=== PATIENT | male | born 1965 | race Caucasian/White ===

== ENCOUNTER 2017-04-19 17:23 | Emergency (ER) | payer BC ==
[2017-04-19] MEDS ORDERED: Sodium Chloride 0.9% 1000 ML 1,000 ML IV STA (18:05)
--- NOTE | 2017-04-19 18:10 | ERPHSYRPT ---
- History of Present Illness Time Seen by Provider: 04/19/17 18:02 Historian: patient Exam Limitations: no limitations Patient Subjective Stated Complaint: diarrehea for 6 days Triage Nursing Assessment: had upper resp s/s last week. started with diarrhea last monday and states now he has cramping to lt abd and then 20+ stools a day that are dark and liquid in color. vomited x1 yesterday. pain to lt abd is better after bowel movement but start again prior to stool. skin warm and dry Physician History: This is a 52-year-old white male with history of coronary artery disease, hyperlipidemia, diabetes, high blood pressure, myocardial infarction, chronic back pain. Patient arrives with complaint of loose stools for 5 days he states he has been having some vomiting states he is having abdominal cramping. States his stools have been dark he does not see any overt bleeding. Past medical history includes coronary artery disease, hyperlipidemia, diabetes , high blood pressure, myocardial infarction, back pain. Past surgical history includes cardiac catheter, cardiac stents, internal defibrillator/pacer, orthopedic surgery including shoulder and back, also appendectomy. Social history is positive for tobacco use denies alcohol or illicit drug use. Timing/Duration: day(s) (5 days) Activities at Onset: none Quality: cramping Abdominal Pain Onset Location: generalized abdomen Severity of Pain-Max: moderate Severity of Pain-Current: mild Modifying Factors: Worsens With: analgesics, antacids, breathing, coughing, defecating, eating, exercise, lying down, movement, palpation, rest, urinating, vomiting, position Associated Symptoms: diarrhea, nausea, No back, No chest pain, No diaphoresis, No fever/chills, No fatigue, No headache, No heartburn, No loss of appetite, No neck pain, No rash, No shortness of breath, No syncope, No vomiting, No weakness Previous symptoms: no prior history Allergies/Adverse Reactions: No Known Drug Allergies Allergy (Verified 04/19/17 17:50) Home Medications: Amiodarone HCl 200 mg [Cordarone 200 MG] 200 mg PO DAILY 07/03/14 [History ] Aspirin 81 gm Chew [Baby Aspirin 81 mg Chew] 81 mg PO DAILY 07/03/14 [ History] Clopidogrel Bisulfate 75 mg [PLAVIX 75 MG Tablet] 75 mg PO DAILY 07/03/14 [History] Gabapentin [Neurontin] 100 mg PO TID 07/03/14 [History] Lisinopril 5 mg [Zestril 5 MG] 5 mg PO BID 07/03/14 [History] Metoprolol Tartrate 25 mg [Lopressor 25MG Tab] 25 mg PO DAILY 07/03/14 [ History] Pravastatin Sodium [Pravachol] 20 mg PO DAILY 07/03/14 [History] Hx Tetanus, Diphtheria Vaccination/Date Given: Yes Hx Influenza Vaccination/Date Given: No Hx Pneumococcal Vaccination/Date Given: No Immunizations Up to Date: Yes - Review of Systems Constitutional: No Fever, No Chills Eyes: No Symptoms Ears, Nose, & Throat: No Symptoms Respiratory: No Cough, No Dyspnea Cardiac: No Chest Pain, No Edema, No Syncope Abdominal/Gastrointestinal: Abdominal Pain, Nausea, Vomiting, Diarrhea, No Constipation, No Hematemesis, No Hematochezia, No Melena, No Dysphagia, No Appetite Changes Genitourinary Symptoms: No Dysuria Musculoskeletal: No Back Pain, No Neck Pain Skin: No Rash Neurological: No Dizziness, No Focal Weakness, No Sensory Changes Psychological: No Symptoms Endocrine: No Symptoms All Other Systems: Reviewed and Negative - Past Medical History Pertinent Past Medical History: Yes Cardiac History: Coronary Artery Disease, High Cholesterol, Hypertension, Myocardial Infarction ([place]) Respiratory History: COPD Other Medical History: BACK PAIN - Past Surgical History Past Surgical History: Yes Cardiac: Cardiac Catheterization, Cardiac Stent, Internal Defibrillator, Pacemaker Musculoskeletal: Orthopedic Surgery - Social History Smoking Status: Current every day smoker Exposure to second hand smoke: Yes Drug Use: none Patient Lives Alone: No - Nursing Vital Signs Nursing Vital Signs: Initial Vital Signs Temperature 97.9 F 04/19/17 17:45 Pulse Rate 67 04/19/17 17:45 Respiratory Rate 18 04/19/17 17:45 Blood Pressure 145/78 04/19/17 17:45 O2 Sat by Pulse Oximetry 97 04/19/17 17:45 Pain Scale Pain Intensity 0 - Physical Exam General Appearance: no apparent distress Eye Exam: PERRL/EOMI, eyes nml inspection Ears, Nose, Throat Exam: normal ENT inspection, pharynx normal, moist mucous membranes Neck Exam: normal inspection, non-tender, supple, full range of motion Respiratory Exam: normal breath sounds, lungs clear, No respiratory distress Cardiovascular Exam: regular rate/rhythm, normal heart sounds Gastrointestinal/Abdomen Exam: soft, normal bowel sounds, tenderness (mild diffuse tenderness), No distention, No mass, No guarding, No ecchymosis, No pulsatile mass, No rebound, No hernia, No hepatomegaly, No organomegaly, No splenomegaly Rectal Exam: normal rectal tone, other (dark stool) Back Exam: normal inspection, normal range of motion, No CVA tenderness, No vertebral tenderness Extremity Exam: normal inspection, normal range of motion, pelvis stable Neurologic Exam: alert, oriented x 3, cooperative, normal mood/affect, nml cerebellar function, sensation nml, No motor deficits Skin Exam: normal color, warm, dry SpO2 Interpretation: normal (97%) SpO2: 97 Oxygen Delivery: Room Air - Course Nursing assessment & vital signs reviewed: Yes - Radiology Exams Abdomen X-ray Interpretation: Interpreted by me, Other (three-view abdomen series: Chest x-ray no acute disease process noted, abdominal x-ray nonobstructive bowel gas pattern) Ordered Tests: Medication Summary Discontinued Medications Generic Name Dose Route Start Last Admin Trade Name Freq PRN Reason Stop Dose Admin Sodium Chloride 1,000 mls @ 999 mls/hr 04/19/17 18:05 04/19/17 18:22 Sodium Chloride 0.9% 1000 Ml IV 04/19/17 19:05 999 mls/hr .Q1H1M STA Administration Sodium Chloride Confirm 04/19/17 18:18 Sodium Chloride 0.9% 1000 Ml Administered 04/19/17 18:19 Dose 1,000 mls @ ud .ROUTE .K-MED ONE Lab/Rad Data: Laboratory Result Diagrams 04/19/17 18:12 04/19/17 18:12 Laboratory Results 04/19/17 04/19/17 04/19/17 Range/Units 19:29 18:36 18:12 WBC (4.0-10.5) K/mm3 RBC (4.1-5.6) M/mm3 Hgb (12.5-18.0) gm/dl Hct (42-50) % MCV (78-100) fl MCH (26-32) pg MCHC (32-36) g/dl RDW (11.5-14.0) % Plt Count (150-450) K/mm3 MPV (6-9.5) fl Gran % (36.0-66.0) % Lymphocytes % (24.0-44.0) % Monocytes % (0.0-12.0) % Eosinophils % (0.00-5.0) % Basophils % (0.0-0.4) % Basophils # (0-0.4) Sodium 145 (136-145) mEq/L Potassium 4.0 (3.5-5.1) mEq/L Chloride 108 H (98-107) mEq/L Carbon Dioxide 26.3 (21-32) mEq/L Anion Gap 15.1 H (5-15) MEQ/L BUN 11 (9-20) mg/dL Creatinine 1.13 (0.55-1.30) mg/dl Estimated GFR > 60 ML/MIN Glucose 88 (70-110) MG/DL Calcium 8.8 (8.5-10.1) mg/dL Total Bilirubin 0.50 (0.2-1.0) mg/dL AST 129 H (15-37) U/L ALT 172 H (12-78) U/L Alkaline Phosphatase 52 (46-116) U/L Serum Total Protein 7.2 (6.4-8.2) gm/dL Albumin 4.2 (3.4-5.0) g/dL Amylase 38 (25-115) U/L Lipase 118 (73-393) U/L Ur Collection Type VOID Urine Color DARK YELLOW (YELLOW) Urine Appearance CLEAR (CLEAR) Urine pH 5.0 (5-6) Ur Specific [place] 1.025 (1.005-1.025) Urine Protein TRACE (Negative) Urine Ketones NEGATIVE (NEGATIVE) Urine Blood NEGATIVE (0-5) Haile/ul Urine Nitrite NEGATIVE (NEGATIVE) Urine Bilirubin MODERATE (NEGATIVE) Urine Urobilinogen 1 (0-1) mg/dL Ur Leukocyte Esterase NEGATIVE (NEGATIVE) Urine Microscopic RBC 0-2 (0-2) /HPF Urine Microscopic WBC 0-2 (0-5) /HPF Ur Epithelial Cells FEW (FEW) /HPF Calcium Oxalate Crystal 0-2 (NEGATIVE) /HPF Amorphous Crystals MODERATE (NEGATIVE) /HPF Urine Bacteria MANY (NEGATIVE) /HPF Urine Mucus MODERATE (NEGATIVE) /HPF Urine Culture Reflexed YES (NO) Urine Glucose NEGATIVE (NEGATIVE) mg/dL Stool Occult Blood NEGATIVE (Negative) Specimen Received 04/19/17 1930 04/19/17 Range/Units 18:12 WBC 9.1 (4.0-10.5) K/mm3 RBC 4.84 (4.1-5.6) M/mm3 Hgb 15.3 (12.5-18.0) gm/dl Hct 46.0 (42-50) % MCV 95.0 (78-100) fl MCH 31.6 (26-32) pg MCHC 33.3 (32-36) g/dl RDW 14.2 H (11.5-14.0) % Plt Count 199 (150-450) K/mm3 MPV 11.6 H (6-9.5) fl Gran % 55.7 (36.0-66.0) % Lymphocytes % 31.1 (24.0-44.0) % Monocytes % 10.2 (0.0-12.0) % Eosinophils % 2.8 (0.00-5.0) % Basophils % 0.2 (0.0-0.4) % Basophils # 0.02 (0-0.4) Sodium (136-145) mEq/L Potassium (3.5-5.1) mEq/L Chloride (98-107) mEq/L Carbon Dioxide (21-32) mEq/L Anion Gap (5-15) MEQ/L BUN (9-20) mg/dL Creatinine (0.55-1.30) mg/dl Estimated GFR ML/MIN Glucose (70-110) MG/DL Calcium (8.5-10.1) mg/dL Total Bilirubin (0.2-1.0) mg/dL AST (15-37) U/L ALT (12-78) U/L Alkaline Phosphatase (46-116) U/L Serum Total Protein (6.4-8.2) gm/dL Albumin (3.4-5.0) g/dL Amylase (25-115) U/L Lipase (73-393) U/L Ur Collection Type Urine Color (YELLOW) Urine Appearance (CLEAR) Urine pH (5-6) Ur Specific [place] (1.005-1.025) Urine Protein (Negative) Urine Ketones (NEGATIVE) Urine Blood (0-5) Haile/ul Urine Nitrite (NEGATIVE) Urine Bilirubin (NEGATIVE) Urine Urobilinogen (0-1) mg/dL Ur Leukocyte Esterase (NEGATIVE) Urine Microscopic RBC (0-2) /HPF Urine Microscopic WBC (0-5) /HPF Ur Epithelial Cells (FEW) /HPF Calcium Oxalate Crystal (NEGATIVE) /HPF Amorphous Crystals (NEGATIVE) /HPF Urine Bacteria (NEGATIVE) /HPF Urine Mucus (NEGATIVE) /HPF Urine Culture Reflexed (NO) Urine Glucose (NEGATIVE) mg/dL Stool Occult Blood (Negative) Specimen Received - Progress Progress: improved Progress Note: 04/19/17 18:57 Patient is feeling better now he states he's been having 5 days of abdominal pain diarrhea. Stools were Dark, occult blood is negative. labs show a normal white count hemoglobin and hematocrit are 15.3 and 46. Chemistry shows mild elevation of the patient's SGOT and SGPT otherwise unremarkable. Will check acute abdominal series plan to discharge clear fluids and Lomotil Patient will need a follow-up with his family DrManuel secondary to mildly increased liver enzymes. 04/19/17 19:27 - Departure Time of Disposition: 19:00 Departure Disposition: Home Clinical Impression: mildly elevated liver enzymes Abdominal pain Qualifiers: Abdominal location: generalized Qualified Code(s): R10.84 - Generalized abdominal pain Diarrhea Qualifiers: Diarrhea type: unspecified type Qualified Code(s): R19.7 - Diarrhea, unspecified Condition: Fair Critical Care Time: No Referrals: MAY MACKAY [Primary Care Provider] - Additional Instructions: Return home. Plenty of fluids clear fluids only 24-48 hours. Follow-up with your family doctor. Return for acute distress or for severe symptoms. Lomotil No. 12 one orally 4 times a day as needed for diarrhea. Prescriptions: Diphenoxylate HCl/Atropine [Lomotil] 1 tab PO QID PRN #12 tablet PRN Reason: diarrhea
[2017-04-19 18:15] LABS: BASOPHIL % 0.2 % (0.0-0.4); Eosinophil % 2.8 % (0.00-5.0); Granulocytes % 55.7 % (36.0-66.0); Lymphocytes % 31.1 % (24.0-44.0); Mean Corpuscular Hemoglobin 31.6 pg (26-32); Mean Platelet Volume 11.6 fl (6-9.5); Monocytes % 10.2 % (0.0-12.0); Platelet Count 199 K/mm3 (150-450); Red Blood Count 4.84 M/mm3 (4.1-5.6); Red Cell Distribution Width 14.2 % (11.5-14.0); White Blood Count 9.1 K/mm3 (4.0-10.5)
[2017-04-19] MEDS ORDERED: Sodium Chloride 0.9% 1000 ML 1,000 ML ONE (18:18)
[2017-04-19 18:27] LABS: ALBUMIN 4.2 g/dL (3.4-5.0); ALKALINE PHOSPHATASE 52 U/L (46-116); ANION GAP 15.1 MEQ/L (5-15); BLOOD UREA NITROGEN 11 mg/dL (9-20); CHLORIDE 108 mEq/L (98-107); Carbon Dioxide 26.3 mEq/L (21-32); Glucose 88 MG/DL (70-110); LIPASE 118 U/L (73-393); SGOT/AST 129 U/L (15-37); SGPT/ALT 172 U/L (12-78); SODIUM 145 mEq/L (136-145); Total Protein 7.2 gm/dL (6.4-8.2)
[2017-04-19 20:01] LABS: Bilirubin MODERATE (NEGATIVE); Blood NEGATIVE Ery/ul (0-5); COMPLETE URINE MICROSCOPIC? YES; Collection Type VOID; Glucose NEGATIVE (NEGATIVE); Leukocyte Esterase NEGATIVE (NEGATIVE)
[2017-04-19 20:02] LABS: ADD URINE CULTURE? YES (NO); Bacteria MANY /HPF (NEGATIVE); CALCIUM OXALATE CRYSTALS 0-2 /HPF (NEGATIVE); Epithelial Cells FEW /HPF (FEW); Mucus MODERATE /HPF (NEGATIVE); WBC 0-2 /HPF (0-5)
[2017-04-19 20:19] VITALS: BP 123/66; PULSE 90; O2SAT 97
--- NOTE | 2017-04-19 22:34 | XRAY ---
Indication: Vomiting and diarrhea. Comparison: Chest exam April 01, 2013. 2 views of the abdomen demonstrates nonspecific nonobstructed bowel gas pattern. Irregular coarse opacities overlying the stomach presumed ingested food/medication. Solid organs unremarkable. Osseous structures intact with moderate degenerative changes throughout the lumbar spine. Single PA chest remains clear. Heart is not enlarged. New left-sided dual lead pacemaker. Bony thorax intact. Impression: 1. Nonacute nonobstructed abdomen. 2. Nonacute 1 view chest with new left-sided pacemaker.
== END 2017-04-19 20:19 | disposition home or self-care (01) ==
LOC: ED 17:23
DX: R10.84 Generalized abdominal pain (principal); R19.7 Diarrhea, unspecified; R74.8 Abnormal levels of other serum enzymes; I25.10 Atherosclerotic heart disease of native coronary artery without angina pectoris; E78.00 Pure hypercholesterolemia, unspecified; E78.5 Hyperlipidemia, unspecified; E11.9 Type 2 diabetes mellitus without complications; I10 Essential (primary) hypertension; I25.2 Old myocardial infarction; Z79.899 Other long term (current) drug therapy
CPT/HCPCS: 36000; 36415; 74022; 80053; 81000; 82150; 82272; 83690; 85025; 87086; 99283

== ENCOUNTER 2017-10-22 18:42 | Inpatient (IN) | payer BC, OTHER ==
[2017-10-22] MEDS ORDERED: DUONEB 0.5-3 MG/3 ml Neb IH ONE ×4 (18:49→22:46)
--- NOTE | 2017-10-22 18:49 | ERPHSYRPT ---
- History of Present Illness Time Seen by Provider: 10/22/17 18:56 Source: patient, family Exam Limitations: no limitations Physician History: 52 year old male with onset shortness of breath aqnd fever today; hx CAD with pacer/defib in place and stents , no CP but diaphoresis , wet rales/rhonchi in lower lung gupta bilaterally; Hx COPD as well. Timing/Duration: today Activities at Onset: none Severity of Dyspnea-Max: moderate Severity of Dyspnea-Current: moderate Possible Cause: frequent episodes, chronic episodes, unknown cause Modifying Factors: Improves With: activity, exertion Associated Symptoms: constant, wheezing, sweating Allergies/Adverse Reactions: No Known Drug Allergies Allergy (Verified 10/22/17 18:58) Home Medications: Amiodarone HCl 200 mg [Cordarone 200 MG] 200 mg PO DAILY 07/03/14 [History ] Aspirin 81 gm Chew [Baby Aspirin 81 mg Chew] 81 mg PO DAILY 07/03/14 [ History] Gabapentin [Neurontin] 100 mg PO TID 07/03/14 [History] Metoprolol Tartrate 25 mg [Lopressor 25MG Tab] 25 mg PO DAILY 07/03/14 [ History] Pravastatin Sodium [Pravachol] 20 mg PO DAILY 07/03/14 [History] Clopidogrel Bisulfate 75 mg [PLAVIX 75 MG Tablet] 75 mg DAILY 10/22/17 [ History] Metformin HCl 500 mg [Glucophage 500 MG] 500 mg DAILY 10/22/17 [History] Hx Tetanus, Diphtheria Vaccination/Date Given: Yes Hx Influenza Vaccination/Date Given: No Hx Pneumococcal Vaccination/Date Given: No - Review of Systems Constitutional: Fever, No Chills Eyes: No Symptoms Ears, Nose, & Throat: No Symptoms Respiratory: Cough, Dyspnea, Wheezing Cardiac: No Chest Pain, No Edema, No Syncope Abdominal/Gastrointestinal: No Abdominal Pain, No Nausea, No Vomiting, No Diarrhea Genitourinary Symptoms: No Dysuria Musculoskeletal: No Back Pain, No Neck Pain Skin: No Rash Neurological: No Dizziness, No Focal Weakness, No Sensory Changes Psychological: No Symptoms Endocrine: No Symptoms All Other Systems: Reviewed and Negative - Past Medical History Pertinent Past Medical History: Yes Cardiac History: Coronary Artery Disease, High Cholesterol, Hypertension, Myocardial Infarction ([place]) Respiratory History: COPD Other Medical History: BACK PAIN - Past Surgical History Past Surgical History: Yes Cardiac: Cardiac Catheterization, Cardiac Stent, Internal Defibrillator, Pacemaker Musculoskeletal: Orthopedic Surgery - Social History Smoking Status: Current every day smoker Exposure to second hand smoke: Yes Drug Use: none Patient Lives Alone: No - Nursing Vital Signs Nursing Vital Signs: Initial Vital Signs Temperature 99.4 F 10/22/17 18:51 Pulse Rate 94 H 10/22/17 18:51 Respiratory Rate 24 10/22/17 18:51 Blood Pressure 118/65 10/22/17 18:51 O2 Sat by Pulse Oximetry 92 L 10/22/17 18:51 Pain Scale Pain Intensity 0 - Physical Exam General Appearance: no apparent distress, alert Eye Exam: PERRL/EOMI Neck Exam: normal inspection, supple Respiratory Exam: airway intact, rhonchi, wheezing Cardiovascular/Chest Exam: normal heart sounds, regular rate/rhythm Abdominal/Gastrointestinal Exam: soft, No tenderness, No distention, No mass Extremity Exam: non-tender, normal range of motion, normal inspection, no calf tenderness, pedal edema, No calf tenderness, No darvin's sign Peripheral Pulses Exam: carotid (R): 2+, carotid (L): 2+, femoral (R): 2+, femoral (L): 2+, dorsalis-pedis (R): 2+, dorsalis-pedis (L): 2+ Neurologic Exam: alert, oriented x 3, cooperative, prepared foods service team member II-XII nml as tested, sensation nml, No motor deficits Skin Exam: normal color, warm, No dry SpO2 Interpretation: borderline oxygenation Oxygen Delivery: Room Air - Course Nursing assessment & vital signs reviewed: Yes EKG Interpreted by Me: Sinus Rhythm, NORMAL AXIS, Non-specific ST Changes, Other (left conduction delay) - Radiology Exams Chest X-ray Interpretation: Reviewed by me, Pneumonia (LLL) Ordered Tests: Active Orders 24 hr Category Date Time Status Analytical Tech STAT Care 10/22/17 18:50 Active EKG-ER Only STAT Care 10/22/17 18:49 Active EKG-ER Only STAT Care 10/22/17 20:39 Active IV Insertion STAT Care 10/22/17 18:49 Active Oxygen-ED Only NASAL CANNULA 2 lpm Care 10/22/17 18:54 Active Pulse Oximetry (ED) STAT Care 10/22/17 18:49 Active CHEST 2 VIEWS (PA AND LAT) Stat Exams 10/22/17 18:50 Taken BLOOD CULTURE Stat Lab 10/22/17 18:55 Received CBC W DIFF Stat Lab 10/22/17 18:55 Completed CMP Stat Lab 10/22/17 18:55 Completed CULTURE, THROAT Stat Lab 10/22/17 19:00 Received Lactic Acid Stat Lab 10/22/17 18:49 Completed Lactic Acid Stat Lab 10/22/17 21:01 Ordered Manual Differential NC Stat Lab 10/22/17 18:55 Completed NT PRO BNP Stat Lab 10/22/17 18:55 Completed STREP SCREEN-BETA A Stat Lab 10/22/17 19:00 Completed TROPONIN Q3H Lab 10/22/17 18:55 Completed TROPONIN Q3H Lab 10/22/17 22:00 Ordered TROPONIN Q3H Lab 10/23/17 01:00 Ordered TROPONIN Q3H Lab 10/23/17 04:00 Ordered TROPONIN Q3H Lab 10/23/17 07:00 Ordered UA W/RFX UR CULTURE Stat Lab 10/22/17 18:51 Uncollected Respiratory Nebulizer STAT RT 10/22/17 18:51 Completed Medication Summary Generic Name Dose Route Start Last Admin Trade Name Freq PRN Reason Stop Dose Admin Magnesium Sulfate/Dextrose 100 mls @ 100 mls/hr 10/22/17 19:00 10/22/17 20:05 Magnesium 1 Gm / 100 Ml D5w IV 10/22/17 20:59 100 mls/hr Q1H TED Administration Sodium Chloride 1,000 mls @ 100 mls/hr 10/22/17 19:00 10/22/17 19:05 Sodium Chloride 0.9% 1000 Ml IV 11/21/17 18:59 100 mls/hr .Q10H TED Administration Discontinued Medications Generic Name Dose Route Start Last Admin Trade Name Freq PRN Reason Stop Dose Admin Albuterol/Ipratropium 3 ml 10/22/17 18:49 10/22/17 19:05 Duoneb 0.5-3 Mg/3 Ml Neb IH 10/22/17 18:50 3 ml STAT ONE Administration Albuterol/Ipratropium Confirm 10/22/17 19:04 Duoneb 0.5-3 Mg/3 Ml Neb Administered 10/22/17 19:05 Dose 3 ml IH .STK-MED ONE Ceftriaxone Sodium/Dextrose 1 g in 50 mls @ 100 mls/hr 10/22/17 18:54 19:05 Rocephin 1 Gm-D5w 50 Ml Bag IV 10/22/17 19:23 100 mls/hr STAT STA Administration Ceftriaxone Sodium/Dextrose Confirm 10/22/17 19:00 Rocephin 1 Gm-D5w 50 Ml Bag Administered 10/22/17 19:01 Dose 1 g in 50 mls @ ud IV .STK-MED ONE Piperacillin Sod/Tazobactam 100 mls @ 200 mls/hr 10/22/17 19:59 Sod 4.5 gm/ Dextrose IV 10/22/17 20:28 STAT ONE Dextrose Confirm 10/22/17 20:38 D5w 100ml Mini Bag 100 Ml Administered 10/22/17 20:39 Dose 100 mls @ ud IV .STK-MED ONE Piperacillin Sod/Tazobactam Sod Confirm 10/22/17 20:38 Zosyn Inj Administered 10/22/17 20:39 Dose 4.5 gm IV .STK-MED ONE Lab/Rad Data: Laboratory Result Diagrams 10/22/17 18:55 10/22/17 18:55 Laboratory Results 10/22/17 10/22/17 10/22/17 Range/Units 19:00 19:00 18:55 WBC (4.0-10.5) K/mm3 RBC (4.1-5.6) M/mm3 Hgb (12.5-18.0) gm/dl Hct (42-50) % MCV (78-100) fl MCH (26-32) pg MCHC (32-36) g/dl RDW (11.5-14.0) % Plt Count (150-450) K/mm3 MPV (6-9.5) fl Absolute Granulocytes (1.4-6.9) Sodium (137-145) mmol/L Potassium (3.5-5.1) mmol/L Chloride (98-107) mmol/L Carbon Dioxide (22-30) mmol/L Anion Gap (5-15) MEQ/L BUN (9-20) mg/dL Creatinine (0.66-1.25) mg/dL Estimated GFR ML/MIN Glucose (74-106) mg/dL Lactic Acid (0.4-2.0) Calcium (8.4-10.2) mg/dL Total Bilirubin (0.2-1.3) mg/dL AST (17-59) U/L ALT (0-50) U/L Alkaline Phosphatase (38-126) U/L Troponin I < 0.012 (0.000-0.034) ng/mL NT-Pro-B Natriuret Pep (0-900) pg/mL Serum Total Protein (6.3-8.2) g/dL Albumin (3.5-5.0) g/dL Influenza Type A Ag NEGATIVE (NEGATIVE) Influenza Type B Ag NEGATIVE (NEGATIVE) RSV (PCR) NEGATIVE (Negative) Streptococcus Screen NEGATIVE (Negative) 10/22/17 10/22/17 10/22/17 Range/Units 18:55 18:55 18:49 WBC 9.7 (4.0-10.5) K/mm3 RBC 4.46 (4.1-5.6) M/mm3 Hgb 14.4 (12.5-18.0) gm/dl Hct 42.4 (42-50) % MCV 95.1 (78-100) fl MCH 32.3 H (26-32) pg MCHC 34.0 (32-36) g/dl RDW 14.2 H (11.5-14.0) % Plt Count 111 L (150-450) K/mm3 MPV 12.2 H (6-9.5) fl Absolute Granulocytes 8.25 H (1.4-6.9) Sodium 137 (137-145) mmol/L Potassium 4.2 (3.5-5.1) mmol/L Chloride 99 (98-107) mmol/L Carbon Dioxide 27 (22-30) mmol/L Anion Gap 15.8 H (5-15) MEQ/L BUN 27 H (9-20) mg/dL Creatinine 1.63 H (0.66-1.25) mg/dL Estimated GFR 47.8 ML/MIN Glucose 161 H (74-106) mg/dL Lactic Acid 2.6 H (0.4-2.0) Calcium 9.0 (8.4-10.2) mg/dL Total Bilirubin 1.60 H (0.2-1.3) mg/dL AST 38 (17-59) U/L ALT 48 (0-50) U/L Alkaline Phosphatase 41 (38-126) U/L Troponin I (0.000-0.034) ng/mL NT-Pro-B Natriuret Pep 399 (0-900) pg/mL Serum Total Protein 7.0 (6.3-8.2) g/dL Albumin 3.9 (3.5-5.0) g/dL Influenza Type A Ag (NEGATIVE) Influenza Type B Ag (NEGATIVE) RSV (PCR) (Negative) Streptococcus Screen (Negative) - Progress Progress: improved, re-examined Air Movement: good Progress Note: 10/22/17 21:14 discussed with pt , family and Dr. Hernandez covering fo rDr. Mackay and will place pt in on OBS due to new CP and pneumonia and begin AB tx 10/22/17 21:15 CP began after arrival and repeat EKG still no change Blood Culture(s) Obtained: Yes Antibiotics given: Yes Discussed with : David Will see patient in: hospital (observation) Counseled pt/family regarding: lab results, diagnosis, need for follow-up, rad results - Departure Time of Disposition: 21:15 Departure Disposition: Observation Clinical Impression: LLL pneumonia, Chest pain Condition: Good Critical Care Time: No Referrals: MAY MACKAY [Primary Care Provider] -
[2017-10-22] MEDS ORDERED: ROCEPHIN 1 Gm-D5w 50 ml Bag** 1 G/50 ML IVPB IV STA (18:54)
[2017-10-22] MEDS ORDERED: ROCEPHIN 1 Gm-D5w 50 ml Bag** 1 G/50 ML IVPB IV ONE (19:00)
[2017-10-22] MEDS ORDERED: Sodium Chloride 0.9% 1000 ML 1,000 ML ONE (19:00)
[2017-10-22] MEDS ORDERED: Sodium Chloride 0.9% 1000 ML 1,000 ML IV SCH (19:00)
[2017-10-22] MEDS ORDERED: Magnesium 1 Gm / 100 Ml D5W*** 100 ML IV ONE ×2 (19:00→20:04)
[2017-10-22 19:05] LABS: Granulocyte Absolute (ANC) 8.25 (1.4-6.9); Hematocrit 42.4 % (42-50); Hemoglobin 14.4 gm/dl (12.5-18.0); Mean Cell Volume 95.1 fl (78-100); Mean Corpuscular Hemoglobin 32.3 pg (26-32); Mean Platelet Volume 12.2 fl (6-9.5); Platelet Count 111 K/mm3 (150-450); Red Blood Count 4.46 M/mm3 (4.1-5.6); Red Cell Distribution Width 14.2 % (11.5-14.0); White Blood Count 9.7 K/mm3 (4.0-10.5)
[2017-10-22 19:12] LABS: Lactic Acid 2.6 (0.4-2.0)
[2017-10-22] MEDS: Magnesium 1 Gm / 100 Ml D5W*** 100 ML IV SCH ×2 (19:20→20:05)
[2017-10-22 19:25] LABS: ALBUMIN 3.9 g/dL (3.5-5.0); ANION GAP 15.8 MEQ/L (5-15); BILIRUBIN,TOTAL 1.6 mg/dL (0.2-1.3); Creatinine 1 1.63 mg/dL (0.66-1.25); Potassium 4.2 mmol/L (3.5-5.1)
[2017-10-22] MEDS ORDERED: Zosyn INJ 4.5 GM in D5w 100ML Mini Bag 100 ML 100 ML IV ONE (19:59)
[2017-10-22 20:03] LABS: INFLUENZA A NEGATIVE (NEGATIVE); INFLUENZA B NEGATIVE (NEGATIVE); RESPIRATORY SYNCTIAL VIRUS NEGATIVE (Negative)
[2017-10-22] MEDS ORDERED: Zosyn INJ IV ONE (20:38)
[2017-10-22] MEDS ORDERED: D5w 100ML Mini Bag 100 ML 100 ML IV ONE (20:38)
--- NOTE | 2017-10-22 21:16 | XRAY ---
Indication: Short of breath. Comparison: April 19, 2017. PA/lateral chest demonstrate new left lower lobe pneumonic infiltrate without large effusion. Right lung clear. Heart is not enlarged again with left-sided AICD. Bony thorax intact. Impression: New left lower lobe pneumonic infiltrate.
[2017-10-22] MEDS ORDERED: BENADRYL 50 MG/ML IV ONE (22:07)
[2017-10-22] MEDS ORDERED: MORPHINE SULFATE 4 MG INJ IV ONE (22:07)
[2017-10-22] MEDS ORDERED: MORPHINE SULFATE 4 MG INJ ONE (22:28)
[2017-10-22] MEDS ORDERED: BENADRYL 50 MG/ML ONE (22:28)
[2017-10-22 22:39] LABS: Lactic Acid 2.3 (0.4-2.0)
[2017-10-22] MEDS ORDERED: Hydromorphone 1 mg/ml Ampule IV ONE (22:48)
[2017-10-22] MEDS ORDERED: DILAUDID 2 MG INJECTION ONE (22:50)
[2017-10-22 23:01] LABS: Appearance CLEAR (CLEAR)
[2017-10-22 23:02] LABS: Bilirubin NEGATIVE (NEGATIVE); Glucose NEGATIVE (NEGATIVE); Ketones NEGATIVE (NEGATIVE); Leukocyte Esterase NEGATIVE (NEGATIVE); Nitrite NEGATIVE (NEGATIVE); Protein,Urine Dip NEGATIVE (Negative); Specific Gravity 1.015 (1.005-1.025); Urobilinogen 1 mg/dL (0-1)
[2017-10-22 23:03] LABS: Blood TRACE NON-HEM Ery/ul (0-5); Epithelial Cells RARE /HPF (FEW); RBC 0-2 /HPF (0-2)
[2017-10-22 23:50] LABS: BAND 9 % (0.0-2.0); Basophil 1 % (0.0-1.0); Lymphocytes 18 % (24-44); Monocyte 8 % (0.0-12.0); Neutrophils 64 % (36.-66.); Platelet Estimate NORMAL (NORMAL); Total Cells Counted 100
[2017-10-23] MEDS ORDERED: DUONEB 0.5-3 MG/3 ml Neb IH PRN (00:17)
[2017-10-23] MEDS ORDERED: Zofran 4 MG/2 ML VIAL IV PRN (00:17)
[2017-10-23] MEDS: TYLENOL 325 MG PO PRN (00:45)
[2017-10-23 00:56] LABS: A-aADO2 246; ABG HEMOGLOBIN 14.2; ABG POTASSIUM 3.7 (3.5-5.1); ARTERIAL BLD GAS O2 SATURATION 96.3 % (95-100); ARTERIAL BLOOD GAS BASE EXCESS -0.5 (-2.0-2.0); ARTERIAL BLOOD GAS FIO2 50 %; ARTERIAL BLOOD GAS PCO2 34 mmHg (35-45); ARTERIAL BLOOD GAS PO2 68 mmHg (75-100); ARTERIAL BLOOD GAS pH 7.44 (7.35-7.45); CARBOXYHEMOGLOBIN 2.3 % THgb (0.0-6.9); HCO3- 23.1 (22-28); HGB O2 SAT 93.4 g/dF (94-100); Methhemoglobin 0.7 % (1.4-1.5); paO2 pAO1 0.22
[2017-10-23 00:57] LABS: ABG SITE RIGHT BRACHIAL
[2017-10-23] MEDS: MORPHINE SULFATE 4 MG INJ IV PRN ×3 (01:53→23:41)
[2017-10-23] MEDS: Pepcid 20 MG VIAL IV SCH ×3 (01:54→23:41)
[2017-10-23] MEDS ORDERED: DUONEB 0.5-3 MG/3 ml Neb IH ONE (02:45)
[2017-10-23] MEDS: Zosyn 3.375GM/100 Ml D5W 3.375 GM/100 ML IVPB IV SCH ×5 (04:35→23:42)
[2017-10-23] MEDS: Sodium Chloride 0.9% 1000 ML 1,000 ML IV SCH ×2 (04:35→17:43)
[2017-10-23 05:24] LABS: Lactic Acid 2.4 (0.4-2.0)
[2017-10-23 06:00] LABS: Granulocyte Absolute (ANC) 9.28 (1.4-6.9); Hematocrit 41.1 % (42-50); Hemoglobin 13.6 gm/dl (12.5-18.0); Mean Cell Volume 97.2 fl (78-100); Mean Corpuscular Hemoglobin 32.2 pg (26-32); Mean Corpuscular Hgb Concent. 33.1 g/dl (32-36); Mean Platelet Volume 12.7 fl (6-9.5); Platelet Count 108 K/mm3 (150-450); Red Blood Count 4.23 M/mm3 (4.1-5.6); Red Cell Distribution Width 14.3 % (11.5-14.0)
[2017-10-23 06:10] LABS: ALBUMIN 3.7 g/dL (3.5-5.0); ANION GAP 16.3 MEQ/L (5-15); BILIRUBIN,TOTAL 1.4 mg/dL (0.2-1.3); Calcium 8.4 mg/dL (8.4-10.2); Creatinine 1 1.78 mg/dL (0.66-1.25); Total Protein 6.3 g/dL (6.3-8.2)
[2017-10-23] MEDS: DUONEB 0.5-3 MG/3 ml Neb IH SCH ×5 (06:37→23:27)
[2017-10-23] MEDS: Levofloxacin 500MG/100ML D5W 500 MG/100 ML BAG IV SCH ×2 (07:58→10:09)
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
[2017-10-23] MEDS ORDERED: MEFOXIN 2 GM PREMIX** 2 GM/50 ML ML IV SCH (09:00)
[2017-10-23] MEDS ORDERED: Nitrostat 0.4 MG Tablet SL PRN (09:39)
[2017-10-23] MEDS ORDERED: Neurontin 100 MG PO SCH (10:00)
[2017-10-23] MEDS ORDERED: BABY ASPIRIN 81 MG CHEW PO SCH (10:00)
[2017-10-23] MEDS ORDERED: NON-FORMULARY ITEM (Pravastatin Sodium [Pravastatin Sodium] 40 MG) PO SCH (10:00)
[2017-10-23] MEDS ORDERED: ENOXAPARIN SODIUM SQ SCH (10:00)
[2017-10-23] MEDS ORDERED: Levofloxacin 500MG/100ML D5W 500 MG/100 ML BAG IV SCH (10:00)
[2017-10-23] MEDS: Lopressor 25MG Tab PO SCH ×2 (10:08→23:42)
[2017-10-23] MEDS: ZOCOR 20MG PO SCH (10:08)
[2017-10-23] MEDS: DELTASONE 20 MG PO SCH (10:08)
[2017-10-23] MEDS: Cordarone 200 MG PO SCH ×2 (10:09→23:42)
[2017-10-23] MEDS: ECOTRIN 81 MG PO SCH (10:09)
[2017-10-23] MEDS: NEURONTIN 300 MG PO SCH ×3 (10:09→23:42)
[2017-10-23] MEDS: PLAVIX 75 MG Tablet PO SCH (10:09)
[2017-10-23] MEDS: Imdur 30 MG PO SCH (10:09)
[2017-10-23] MEDS: PATIENT OWN MEDICATION IH SCH (11:25)
[2017-10-23 12:30] LABS: BAND 17 % (0.0-2.0); Lymphocytes 13 % (24-44); Monocyte 3 % (0.0-12.0); Neutrophils 67 % (36.-66.); Total Cells Counted 100
[2017-10-23 12:31] LABS: ANISOCYTOSIS 1+; Platelet Estimate NORMAL (NORMAL); Poikilocytosis 1+; Polychromasia 1+
[2017-10-23] MEDS: NovoLIN R SQ PRN ×2 (16:40→23:43)
[2017-10-24] MEDS: DUONEB 0.5-3 MG/3 ml Neb IH SCH ×6 (03:38→23:13)
[2017-10-24] MEDS: Zosyn 3.375GM/100 Ml D5W 3.375 GM/100 ML IVPB IV SCH ×4 (05:22→23:51)
[2017-10-24] MEDS: MORPHINE SULFATE 4 MG INJ IV PRN (05:22)
[2017-10-24] MEDS: Sodium Chloride 0.9% 1000 ML 1,000 ML IV SCH ×2 (05:22→19:50)
[2017-10-24 06:12] LABS: Granulocyte Absolute (ANC) 7.64 (1.4-6.9); Hematocrit 37.2 % (42-50); Hemoglobin 12.4 gm/dl (12.5-18.0); Mean Cell Volume 95.9 fl (78-100); Mean Corpuscular Hgb Concent. 33.3 g/dl (32-36); Mean Platelet Volume 12.5 fl (6-9.5); Platelet Count 119 K/mm3 (150-450); Red Blood Count 3.88 M/mm3 (4.1-5.6); Red Cell Distribution Width 14.1 % (11.5-14.0); White Blood Count 9.6 K/mm3 (4.0-10.5)
[2017-10-24 06:15] LABS: Mean Corpuscular Hemoglobin 31.9 pg (26-32)
[2017-10-24 06:25] LABS: ANION GAP 10.8 MEQ/L (5-15); BLOOD UREA NITROGEN 22 mg/dL (9-20); CHLORIDE 106 mmol/L (98-107); Calcium 8.4 mg/dL (8.4-10.2); Carbon Dioxide 27 mmol/L (22-30); Creatinine 1 0.98 mg/dL (0.66-1.25); Glucose 131 mg/dL (74-106); Potassium 4.1 mmol/L (3.5-5.1); SODIUM 140 mmol/L (137-145)
[2017-10-24] MEDS: PATIENT OWN MEDICATION IH SCH (07:36)
[2017-10-24 07:38] LABS: BAND 3 % (0.0-2.0); Lymphocytes 23 % (24-44); Monocyte 1 % (0.0-12.0); Neutrophils 73 % (36.-66.); Total Cells Counted 100
[2017-10-24 07:39] LABS: Platelet Estimate NORMAL (NORMAL); Toxic Granulation 1+
--- NOTE | 2017-10-24 08:59 | PCM.NOTE ---
Date and Time: 10/24/17 0854 Subjective Assessment: Patient reports that he countinues to have a cough but nothing comes up. He reports that he gets short of breath when ambulating across the [place]. He was placed on oxygen 2 L NC and does not wear oxygen at home. He denies fever or chills and no nausea or vomiting in the past 24 hours. He denies constipation. - Review of Systems Constitutional: No Fever, No Chills Eyes: No Symptoms Ears, Nose, & Throat: No Symptoms Respiratory: Cough, Short Of Breath Cardiac: No No Symptoms Abdominal/Gastrointestinal: No No Symptoms, No Constipation Genitourinary Symptoms: No Symptoms Musculoskeletal: No Symptoms Skin: No Symptoms Objective Exam General Appearance: no apparent distress, alert Neurologic Exam: alert, cooperative, normal mood/affect Skin Exam: normal color, warm, dry, No rash Respiratory Exam: airway intact, other (few scattered crackles at bases and few inspiratory wheeze and expiratory wheeze at bases bilat, no no retractions, no tachypnea.), No respiratory distress, No accessory muscle use, No stridor Cardiovascular Exam: regular rate/rhythm, normal heart sounds, No murmur, No friction rub, No gallop Gastrointestinal/Abdomen Exam: soft, normal bowel sounds, No tenderness, No distention, No mass Extremity Exam: other (no c/c/e) OBJECTIVE DATA Vital Signs: Vital Signs - 24 hr Temp Pulse Resp BP Pulse Ox 10/24/17 08:00 97.7 F 67 20 113/69 94 L 10/24/17 07:00 65 18 90 L 10/24/17 04:00 97.9 F 73 28 H 140/79 95 10/24/17 03:38 73 28 H 95 10/24/17 00:00 98.1 F 77 22 124/71 94 L 10/23/17 23:27 77 24 94 L 10/23/17 20:00 97.8 F 68 22 134/75 91 L 10/23/17 19:14 68 18 91 L 10/23/17 16:00 20 10/23/17 15:48 97.8 F 76 20 117/68 95 10/23/17 15:00 74 20 91 L 10/23/17 12:00 97.5 F 80 16 116/59 97 10/23/17 11:25 92 L 10/23/17 10:26 77 22 96 Oxygen-Last 24 hours O2 Percentage 2 Liters = 28% O2 Percentage 2 Liters = 28% Pain Assessment - Last Documented Pain Intensity 6 Pain Scale Used 0-10 Pain Scale Intake and Output: Intake & Output 10/22/17 10/23/17 10/24/17 10/25/17 06:59 06:59 06:59 06:59 Intake Total 613 2804 Output Total 350 300 Balance 263 2504 Weight 124 kg Lab Results: Accuchecks Date 10/24/17 Date 10/22/17 Date 10/23/17 Date 10/23/17 Time 22:00 Time 16:30 Time 11:30 Accucheck Value: 111 Accucheck Value: 177 Accucheck Value: 197 Accucheck Value: 141 Lab Results-Last 24 Hours 10/23/17 10/23/17 10/24/17 Range/Units 05:00 05:45 05:48 WBC 9.6 (4.0-10.5) K/mm3 RBC 3.88 L (4.1-5.6) M/mm3 Hgb 12.4 L (12.5-18.0) gm/dl Hct 37.2 L (42-50) % MCV 95.9 (78-100) fl MCH 31.9 (26-32) pg MCHC 33.3 (32-36) g/dl RDW 14.1 H (11.5-14.0) % Plt Count 119 L (150-450) K/mm3 MPV 12.5 H (6-9.5) fl Absolute Granulocytes 7.64 H (1.4-6.9) Segmented Neutrophils 67 H 73 H (36.-66.) % Band Neutrophils 17 H 3 H (0.0-2.0) % Lymphocytes (Manual) 13 L 23 L (24-44) % Monocytes (Manual) 3 1 (0.0-12.0) % Toxic Granulation 1+ Platelet Estimate NORMAL NORMAL (NORMAL) RBC Morphology ABNORMAL NORMAL Polychromasia 1+ Poikilocytosis 1+ Anisocytosis 1+ Sodium (137-145) mmol/L Potassium (3.5-5.1) mmol/L Chloride (98-107) mmol/L Carbon Dioxide (22-30) mmol/L Anion Gap (5-15) MEQ/L BUN (9-20) mg/dL Creatinine (0.66-1.25) mg/dL Estimated GFR ML/MIN Glucose (74-106) mg/dL Hemoglobin A1c 5.61 (4.5-6.0) % Calcium (8.4-10.2) mg/dL 10/24/17 Range/Units 05:48 WBC (4.0-10.5) K/mm3 RBC (4.1-5.6) M/mm3 Hgb (12.5-18.0) gm/dl Hct (42-50) % MCV (78-100) fl MCH (26-32) pg MCHC (32-36) g/dl RDW (11.5-14.0) % Plt Count (150-450) K/mm3 MPV (6-9.5) fl Absolute Granulocytes (1.4-6.9) Segmented Neutrophils (36.-66.) % Band Neutrophils (0.0-2.0) % Lymphocytes (Manual) (24-44) % Monocytes (Manual) (0.0-12.0) % Toxic Granulation Platelet Estimate (NORMAL) RBC Morphology Polychromasia Poikilocytosis Anisocytosis Sodium 140 (137-145) mmol/L Potassium 4.1 (3.5-5.1) mmol/L Chloride 106 (98-107) mmol/L Carbon Dioxide 27 (22-30) mmol/L Anion Gap 10.8 (5-15) MEQ/L BUN 22 H (9-20) mg/dL Creatinine 0.98 (0.66-1.25) mg/dL Estimated GFR > 60.0 ML/MIN Glucose 131 H (74-106) mg/dL Hemoglobin A1c (4.5-6.0) % Calcium 8.4 (8.4-10.2) mg/dL Assessment/Plan (1) LLL pneumonia Current Visit: Yes Status: Acute Qualifiers: Pneumonia type: due to unspecified organism Qualified Code(s): J18.1 - Lobar pneumonia, unspecified organism Assessment & Plan: Continue levofloxacin and zosyn. Blood culture no growth to date. Continue breathing treatments and oxygen as needed. He will need an albuterol inhaler to have at home. He follows with Dr. Montiel as an outpatient. Code(s): J18.1 - LOBAR PNEUMONIA, UNSPECIFIED ORGANISM (2) COPD exacerbation Current Visit: Yes Status: Acute Assessment & Plan: Continue prednisone, antibiotics and oxygen. Code(s): J44.1 - CHRONIC OBSTRUCTIVE PULMONARY DISEASE W (ACUTE) EXACERBATION (3) Acute kidney injury Current Visit: Yes Status: Resolved Assessment & Plan: Now resolved. D/C IV fluids. Code(s): N17.9 - ACUTE KIDNEY FAILURE, UNSPECIFIED (4) History of coronary artery disease Current Visit: Yes Status: Chronic Assessment & Plan: continue home medications. Restart Entresto. Code(s): Z86.79 - PERSONAL HISTORY OF OTHER DISEASES OF THE CIRCULATORY SYSTEM (5) Type 2 diabetes mellitus Current Visit: Yes Status: Acute Qualifiers: Diabetes mellitus termite helper insulin use: without penitentiary use Diabetes mellitus complication status: without complication Qualified Code(s): E11.9 - Type 2 diabetes mellitus without complications Assessment & Plan: Continue to hold metformin and continue low dose sliding scale insulin.
[2017-10-24] MEDS: PLAVIX 75 MG Tablet PO SCH (09:57)
[2017-10-24] MEDS: DELTASONE 20 MG PO SCH (09:57)
[2017-10-24] MEDS: Pepcid 20 MG VIAL IV SCH ×2 (09:57→22:07)
[2017-10-24] MEDS: Lopressor 25MG Tab PO SCH ×2 (09:57→22:06)
[2017-10-24] MEDS: Levofloxacin 500MG/100ML D5W 500 MG/100 ML BAG IV SCH (09:57)
[2017-10-24] MEDS: Cordarone 200 MG PO SCH ×2 (09:57→22:07)
[2017-10-24] MEDS: NEURONTIN 300 MG PO SCH ×3 (09:57→22:06)
[2017-10-24] MEDS: ZOCOR 20MG PO SCH (09:57)
[2017-10-24] MEDS: ECOTRIN 81 MG PO SCH (09:57)
[2017-10-24] MEDS: Imdur 30 MG PO SCH (09:57)
[2017-10-24] MEDS: ENTRESTO 49 MG-51 MG TABLET PO SCH ×2 (09:57→22:07)
[2017-10-24] MEDS: NovoLIN R SQ PRN (22:07)
[2017-10-25] MEDS: DUONEB 0.5-3 MG/3 ml Neb IH SCH ×6 (03:28→22:17)
[2017-10-25] MEDS: Zosyn 3.375GM/100 Ml D5W 3.375 GM/100 ML IVPB IV SCH ×3 (05:34→17:39)
[2017-10-25 05:44] LABS: BASOPHIL % 0.2 % (0.0-0.4); Basophil (Absolute #) 0.02 (0-0.4); Eosinophil % 0.2 % (0.00-5.0); Eosinophil (Absolute #) 0.02 (0-0.5); Granulocyte Absolute (ANC) 8.25 (1.4-6.9); Granulocytes % 77.2 % (36.0-66.0); Hematocrit 38.8 % (42-50); Hemoglobin 13.2 gm/dl (12.5-18.0); Lymphocyte (Absolute #) 1.53 (1.0-4.6); Lymphocytes % 14.3 % (24.0-44.0); Mean Cell Volume 95.8 fl (78-100); Mean Platelet Volume 12.1 fl (6-9.5); Monocyte (Absolute #) 0.87 (0.0-1.3); Monocytes % 8.1 % (0.0-12.0); Platelet Count 143 K/mm3 (150-450); Red Blood Count 4.05 M/mm3 (4.1-5.6); Red Cell Distribution Width 14.2 % (11.5-14.0); White Blood Count 10.7 K/mm3 (4.0-10.5)
[2017-10-25 05:45] LABS: Mean Corpuscular Hemoglobin 32.5 pg (26-32)
[2017-10-25 06:01] LABS: ANION GAP 13.3 MEQ/L (5-15); BLOOD UREA NITROGEN 17 mg/dL (9-20); CHLORIDE 108 mmol/L (98-107); Calcium 8.6 mg/dL (8.4-10.2); Carbon Dioxide 23 mmol/L (22-30); Creatinine 1 0.81 mg/dL (0.66-1.25); Glucose 134 mg/dL (74-106); Potassium 3.9 mmol/L (3.5-5.1); SODIUM 140 mmol/L (137-145)
[2017-10-25] MEDS: PATIENT OWN MEDICATION IH SCH (07:15)
--- NOTE | 2017-10-25 08:55 | PCM.NOTE ---
Date and Time: 10/25/17 0850 Subjective Assessment: Patient reports continued dry cough and shortness of breath. He reports some pain in his left side when he is coughing. He was off oxygen late last night and this AM. His appetite has been good. He reports the breathing treatments seem to help. - Review of Systems Constitutional: No Symptoms Eyes: No Symptoms Ears, Nose, & Throat: No Symptoms Respiratory: Cough, Short Of Breath, Wheezing Cardiac: No Symptoms Abdominal/Gastrointestinal: No Symptoms Genitourinary Symptoms: No Symptoms Musculoskeletal: No Symptoms Skin: No Symptoms Objective Exam General Appearance: no apparent distress, alert, obese Neurologic Exam: alert, cooperative, normal mood/affect Skin Exam: normal color, warm, dry, No rash Respiratory Exam: airway intact, other (scattered expiratory wheezes throughout) , No respiratory distress, No accessory muscle use, No crackles/rales, No stridor Cardiovascular Exam: regular rate/rhythm, normal heart sounds, No murmur, No friction rub, No gallop Gastrointestinal/Abdomen Exam: soft, normal bowel sounds, No tenderness, No distention, No mass Extremity Exam: other (no c/c/e) OBJECTIVE DATA Vital Signs: Vital Signs - 24 hr Temp Pulse Resp BP Pulse Ox 10/25/17 07:44 98.1 F 62 22 125/74 95 10/25/17 07:00 75 20 95 10/25/17 04:00 98 F 67 18 142/76 95 10/25/17 03:28 67 18 95 10/25/17 00:00 62 18 126/76 99 10/24/17 23:13 60 16 96 10/24/17 20:00 98.2 F 76 20 132/74 93 L 10/24/17 19:04 72 24 92 L 10/24/17 16:00 98.2 F 77 24 118/64 94 L 10/24/17 14:48 66 22 95 10/24/17 12:00 97.7 F 66 22 113/62 95 10/24/17 11:00 67 20 94 L Pain Assessment - Last Documented Pain Intensity 3 Pain Scale Used 0-10 Pain Scale Intake and Output: Intake & Output 10/23/17 10/24/17 10/25/17 10/26/17 06:59 06:59 06:59 06:59 Intake Total 600 Balance 600 Weight 122.5 kg Lab Results: Accuchecks Date 10/24/17 Date 10/24/17 Date 10/24/17 Accucheck Value: 82 Accucheck Value: 181 Accucheck Value: 147 Accucheck Value: 129 Lab Results-Last 24 Hours 10/25/17 10/25/17 Range/Units 05:35 05:35 WBC 10.7 H (4.0-10.5) K/mm3 RBC 4.05 L (4.1-5.6) M/mm3 Hgb 13.2 (12.5-18.0) gm/dl Hct 38.8 L (42-50) % MCV 95.8 (78-100) fl MCH 32.5 H (26-32) pg MCHC 34.0 (32-36) g/dl RDW 14.2 H (11.5-14.0) % Plt Count 143 L (150-450) K/mm3 MPV 12.1 H (6-9.5) fl Gran % 77.2 H (36.0-66.0) % Eos # (Auto) 0.02 (0-0.5) Absolute Lymphs (auto) 1.53 (1.0-4.6) Absolute Monos (auto) 0.87 (0.0-1.3) Lymphocytes % 14.3 L (24.0-44.0) % Monocytes % 8.1 (0.0-12.0) % Eosinophils % 0.2 (0.00-5.0) % Basophils % 0.2 (0.0-0.4) % Absolute Granulocytes 8.25 H (1.4-6.9) Basophils # 0.02 (0-0.4) Sodium 140 (137-145) mmol/L Potassium 3.9 (3.5-5.1) mmol/L Chloride 108 H (98-107) mmol/L Carbon Dioxide 23 (22-30) mmol/L Anion Gap 13.3 (5-15) MEQ/L BUN 17 (9-20) mg/dL Creatinine 0.81 (0.66-1.25) mg/dL Estimated GFR > 60.0 ML/MIN Glucose 134 H (74-106) mg/dL Calcium 8.6 (8.4-10.2) mg/dL Assessment/Plan (1) LLL pneumonia Current Visit: Yes Status: Acute Onset Date: ~10/22/17 Qualifiers: Pneumonia type: due to unspecified organism Qualified Code(s): J18.1 - Lobar pneumonia, unspecified organism Assessment & Plan: Continue with zosyn and levofloxacin Day 4 of both. Recheck chest X-ray today. Continue with oxygen if needed. Continue breathing treatments. Code(s): J18.1 - LOBAR PNEUMONIA, UNSPECIFIED ORGANISM (2) COPD exacerbation Current Visit: Yes Status: Acute Onset Date: ~10/22/17 Assessment & Plan: Continue prednisone, antibiotics, breathing treatments and oxygen. Code(s): J44.1 - CHRONIC OBSTRUCTIVE PULMONARY DISEASE W (ACUTE) EXACERBATION (3) History of coronary artery disease Current Visit: Yes Status: Chronic Assessment & Plan: Stable on home medications. Entresto was restarted yesterday. Code(s): Z86.79 - PERSONAL HISTORY OF OTHER DISEASES OF THE CIRCULATORY SYSTEM (4) Type 2 diabetes mellitus Current Visit: Yes Status: Chronic Qualifiers: Diabetes mellitus terminal operator insulin use: without jail use Diabetes mellitus complication status: without complication Qualified Code(s): E11.9 - Type 2 diabetes mellitus without complications Assessment & Plan: Continue low dose sliding scale of insulin. Will plan to restart metformin when he is discharged.
[2017-10-25] MEDS: Levofloxacin 500MG/100ML D5W 500 MG/100 ML BAG IV SCH (09:36)
[2017-10-25] MEDS: PLAVIX 75 MG Tablet PO SCH (09:36)
[2017-10-25] MEDS: Imdur 30 MG PO SCH (09:36)
[2017-10-25] MEDS: ZOCOR 20MG PO SCH (09:36)
[2017-10-25] MEDS: Lopressor 25MG Tab PO SCH ×2 (09:36→21:14)
[2017-10-25] MEDS: NEURONTIN 300 MG PO SCH ×3 (09:37→21:14)
[2017-10-25] MEDS: DELTASONE 20 MG PO SCH (09:37)
[2017-10-25] MEDS: ENTRESTO 49 MG-51 MG TABLET PO SCH ×2 (09:37→21:14)
[2017-10-25] MEDS: Cordarone 200 MG PO SCH ×2 (09:37→21:14)
[2017-10-25] MEDS: Pepcid 20 MG VIAL IV SCH ×2 (09:37→21:14)
[2017-10-25] MEDS: ECOTRIN 81 MG PO SCH (09:37)
--- NOTE | 2017-10-25 11:09 | XRAY ---
Exam: Two-view chest from 10/25/2017. Comparison: Two-view chest from 10/22/2017. Indication: Cough, pneumonia. Findings: Upright PA and lateral chest films are submitted for evaluation. The heart size appears unremarkable. A left-sided cardiac pacemaker/AICD is seen in unchanged position. Multiple other leads overlie the chest. I again note dense posterior left basilar airspace infiltrate which now obscures a portion of the left hemidiaphragm. This is again consistent with left lower lobe pneumonia. The left lower lobe infiltrate is about the same or perhaps slightly improved. Continued follow-up is recommended. I see no definite associated effusion. There is some subtle increased airspace opacity within the peripheral right upper to midlung field which is not definitely seen on the prior study. A subtle second infiltrate cannot be excluded. The remainder of the right lung appears clear. No pneumothorax is seen. There is slight convexity of the lower midthoracic spine toward the right. No acute osseous process is seen. Some degenerative disc disease is seen at the inferior margin of the lateral film, probably at T12-L1 and L1-L2. Impression: 1. I again see a moderate sized air space infiltrate at the posterior left lung base consistent with left lower lobe pneumonia. This is about the same or perhaps slightly improved. 2. In addition, there is a suggestion of some minimal asymmetric airspace opacity within the peripheral right upper to midlung zone on the PA film. A second subtle infiltrate at this site is not excluded. Continued follow-up is recommended.
[2017-10-25] MEDS: NovoLIN R SQ PRN (21:14)
[2017-10-26] MEDS: Zosyn 3.375GM/100 Ml D5W 3.375 GM/100 ML IVPB IV SCH ×5 (00:30→23:29)
[2017-10-26] MEDS: DUONEB 0.5-3 MG/3 ml Neb IH SCH ×6 (03:13→23:07)
[2017-10-26 06:14] LABS: Granulocyte Absolute (ANC) 5.91 (1.4-6.9); Hematocrit 39.4 % (42-50); Hemoglobin 13.1 gm/dl (12.5-18.0); Mean Cell Volume 95.9 fl (78-100); Mean Corpuscular Hemoglobin 31.9 pg (26-32); Mean Corpuscular Hgb Concent. 33.2 g/dl (32-36); Mean Platelet Volume 11.5 fl (6-9.5); Platelet Count 148 K/mm3 (150-450); Red Blood Count 4.11 M/mm3 (4.1-5.6); Red Cell Distribution Width 14.2 % (11.5-14.0); White Blood Count 8.5 K/mm3 (4.0-10.5)
[2017-10-26] MEDS: PATIENT OWN MEDICATION IH SCH (06:30)
[2017-10-26 06:48] LABS: ANION GAP 12.3 MEQ/L (5-15); BLOOD UREA NITROGEN 15 mg/dL (9-20); CHLORIDE 107 mmol/L (98-107); Calcium 8.6 mg/dL (8.4-10.2); Carbon Dioxide 26 mmol/L (22-30); Creatinine 1 0.94 mg/dL (0.66-1.25); Glucose 109 mg/dL (74-106); Potassium 4.4 mmol/L (3.5-5.1); SODIUM 141 mmol/L (137-145)
[2017-10-26 07:13] LABS: Lymphocytes 29 % (24-44); Monocyte 2 % (0.0-12.0); Neutrophils 69 % (36.-66.); Total Cells Counted 100
[2017-10-26 07:14] LABS: Platelet Estimate NORMAL (NORMAL)
[2017-10-26] MEDS: Lopressor 25MG Tab PO SCH ×2 (09:02→22:58)
[2017-10-26] MEDS: ZOCOR 20MG PO SCH (09:02)
[2017-10-26] MEDS: DELTASONE 20 MG PO SCH (09:02)
[2017-10-26] MEDS: TYLENOL 325 MG PO PRN (09:02)
[2017-10-26] MEDS: PLAVIX 75 MG Tablet PO SCH (09:02)
[2017-10-26] MEDS: NEURONTIN 300 MG PO SCH ×3 (09:02→22:58)
[2017-10-26] MEDS: Levofloxacin 500MG/100ML D5W 500 MG/100 ML BAG IV SCH (09:02)
[2017-10-26] MEDS: ECOTRIN 81 MG PO SCH (09:02)
[2017-10-26] MEDS: Pepcid 20 MG VIAL IV SCH ×2 (09:02→22:58)
[2017-10-26] MEDS: Imdur 30 MG PO SCH (09:02)
[2017-10-26] MEDS: Cordarone 200 MG PO SCH ×2 (09:02→22:57)
[2017-10-26] MEDS: ENTRESTO 49 MG-51 MG TABLET PO SCH ×2 (09:03→22:58)
--- NOTE | 2017-10-26 09:41 | PCM.NOTE ---
Date and Time: 10/26/17934 Subjective Assessment: Patient with continued cough. He reports left sided chest pain that was worse when he coughed after waking up this AM. He denies chest pain yesterday when he was ambulating. He has not needed oxygen besides with his CPAP in the past 24 hours. The RT states they just used that prophylactically. - Review of Systems Constitutional: No Symptoms Eyes: No Symptoms Ears, Nose, & Throat: No Symptoms Respiratory: Cough, Short Of Breath Cardiac: Chest Pain Abdominal/Gastrointestinal: No Symptoms Genitourinary Symptoms: No Symptoms Musculoskeletal: No Symptoms Skin: No Symptoms Objective Exam General Appearance: no apparent distress, alert Neurologic Exam: alert, cooperative Skin Exam: normal color, warm, dry Respiratory Exam: airway intact, other (rhonchi and wheezing worse in the left lower lung field. Some wheezing in the right lower lung field also), No respiratory distress, No accessory muscle use, No crackles/rales Cardiovascular Exam: regular rate/rhythm, normal heart sounds, No murmur, No friction rub, No gallop Gastrointestinal/Abdomen Exam: soft, normal bowel sounds, No tenderness, No distention, No mass Extremity Exam: other (no c/c/e) OBJECTIVE DATA Vital Signs: Vital Signs - 24 hr Temp Pulse Resp BP Pulse Ox 10/26/17 07:16 97.6 F 66 22 131/78 90 L 10/26/17 06:31 62 18 97 10/26/17 04:29 20 10/26/17 04:11 98.6 F 66 22 133/78 97 10/26/17 03:00 59 L 22 97 10/26/17 00:00 22 10/25/17 23:53 98.4 F 81 24 130/62 99 10/25/17 22:19 62 18 93 L 10/25/17 20:00 98.0 F 69 22 119/58 90 L 10/25/17 19:00 69 22 90 L 10/25/17 16:00 98.6 F 69 18 124/63 93 L 10/25/17 14:24 75 18 92 L 10/25/17 12:00 20 10/25/17 11:43 98.5 F 68 20 113/61 95 10/25/17 11:00 65 18 94 L Oxygen-Last 24 hours O2 Percentage 35% O2 Percentage 35% Pain Assessment - Last Documented Pain Intensity 0 Pain Scale Used 0-10 Pain Scale,FLACC Intake and Output: Intake & Output 10/24/17 10/25/17 10/26/17 10/27/17 06:59 06:59 06:59 06:59 Intake Total 600 1180 Balance 600 1180 Weight 122.5 kg 122.8 kg Lab Results: Accuchecks Date 10/25/17 Time 21:44 Accucheck Value: 165 Accucheck Value: 180 Accucheck Value: 142 Lab Results-Last 24 Hours 10/26/17 10/26/17 Range/Units 05:55 05:55 WBC 8.5 (4.0-10.5) K/mm3 RBC 4.11 (4.1-5.6) M/mm3 Hgb 13.1 (12.5-18.0) gm/dl Hct 39.4 L (42-50) % MCV 95.9 (78-100) fl MCH 31.9 (26-32) pg MCHC 33.2 (32-36) g/dl RDW 14.2 H (11.5-14.0) % Plt Count 148 L (150-450) K/mm3 MPV 11.5 H (6-9.5) fl Absolute Granulocytes 5.91 (1.4-6.9) Segmented Neutrophils 69 H (36.-66.) % Lymphocytes (Manual) 29 (24-44) % Monocytes (Manual) 2 (0.0-12.0) % Platelet Estimate NORMAL (NORMAL) RBC Morphology NORMAL Sodium 141 (137-145) mmol/L Potassium 4.4 (3.5-5.1) mmol/L Chloride 107 (98-107) mmol/L Carbon Dioxide 26 (22-30) mmol/L Anion Gap 12.3 (5-15) MEQ/L BUN 15 (9-20) mg/dL Creatinine 0.94 (0.66-1.25) mg/dL Estimated GFR > 60.0 ML/MIN Glucose 109 H (74-106) mg/dL Calcium 8.6 (8.4-10.2) mg/dL Radiology Exams: Radiology Procedures Category Date Time Status CHEST 2 VIEWS (PA AND LAT) Routine Exams 10/25/17 10:26 Completed Assessment/Plan (1) LLL pneumonia Current Visit: Yes Status: Acute Onset Date: ~10/22/17 Qualifiers: Pneumonia type: due to unspecified organism Qualified Code(s): J18.1 - Lobar pneumonia, unspecified organism Assessment & Plan: Continue with levofloxacin and zosyn. Day 5. Some improvement on his chest X- ray over the past [address] Lottie Soria. Code(s): J18.1 - LOBAR PNEUMONIA, UNSPECIFIED ORGANISM (2) COPD exacerbation Current Visit: Yes Status: Acute Onset Date: ~10/22/17 Assessment & Plan: Continue with antibiotics, steroids, breathing treatments. Code(s): J44.1 - CHRONIC OBSTRUCTIVE PULMONARY DISEASE W (ACUTE) EXACERBATION (3) History of coronary artery disease Current Visit: Yes Status: Chronic Assessment & Plan: Continue home medication. Code(s): Z86.79 - PERSONAL HISTORY OF OTHER DISEASES OF THE CIRCULATORY SYSTEM (4) Type 2 diabetes mellitus Current Visit: Yes Status: Chronic Qualifiers: Diabetes mellitus jail insulin use: without watermaster use Diabetes mellitus complication status: without complication Qualified Code(s): E11.9 - Type 2 diabetes mellitus without complications Assessment & Plan: Continue low dose sliding scale of insulin and plan to restart metformin when he is discharged. (5) Chest pain Current Visit: Yes Status: Acute Onset Date: ~10/22/17 Assessment & Plan: check troponin now and then again in 4 hours. Check EKG now. Check D-dimer now and if high, plan to check CT scan of chest with contrast. Restart telemetry due to chest pain. Code(s): R07.9 - CHEST PAIN, UNSPECIFIED
[2017-10-26] MEDS ORDERED: MOTRIN 600 MG PO PRN (12:51)
--- NOTE | 2017-10-26 14:04 | CONS ---
CONSULT DATE: 10/26/2017 HISTORY: Aldo Deleon is a 52 year-old male with significant history of chronic obstructive pulmonary disease, known to Dr. Montiel, who was seen in his office last week. The patient was started on inhaled bronchodilators. The patient reports that he started having chills with fever Monday leading to an emergency room visit Monday evening. Chest x-ray performed on admission did show moderate infiltrate in the left lung base consistent with community acquired pneumonia. The patient has been treated for the same. He does report improvement. He was treated with BiPAP and with oxygenation. Over the past two or three days of IV therapy the patient's cough has improved. He also reports less shortness of breath. Unfortunately he continues to smoke. He also had a positive D-dimer of [address] chest with contrast has been ordered today and currently pending. PAST MEDICAL HISTORY: Positive for history of chronic obstructive pulmonary disease, coronary artery disease. He is followed by Dr. Carter. History of diabetes mellitus, hypertension, hyperlipidemia. PAST SURGICAL HISTORY: AICD placement. PERSONAL AND SOCIAL HISTORY: He smokes half to one pack of cigarettes per day. He lives with family. MEDICATIONS: At home he is on Tylenol, DuoNeb, Stiolto, amiodarone, aspirin, Plavix, Pepcid, Neurontin, Imdur, Lopressor, Nitro, prednisone, Zocor. ALLERGIES: NKDA. PHYSICAL EXAMINATION: This is a middle aged man who appears comfortable, able to speak full sentences. HEENT: Normocephalic. Oral exam unremarkable. NECK: Supple. CVS: First and second heart sounds are normal, regular, rhythmic. RESPIRATORY: Shows diminished breath sounds. Rhonchi are heard. Basilar crackles are heard. ABDOMEN: Soft. EXTREMITIES: No edema is present. LABORATORY DATA AND TESTS: X-rays reviewed. ASSESSMENT: This is a 52 year old male with history of chronic obstructive pulmonary disease admitted with: Community acquired pneumonia. 2) Chronic obstructive pulmonary disease exacerbation. 3) Hypoxia 4) Coronary artery disease. 5) Nicotine addiction. 6) Positive D-dimer test. RECOMMENDATIONS: The patient is clinically improving from pulmonary standpoint, continue Zosyn and Levaquin, continue supplemental oxygen. CT chest with contrast has been ordered to rule out pulmonary embolism which will also allow us to assess for radiologic improvement. Will also obtain lower extremity venous Doppler. Need for smoking cessation was stressed. The patient will be followed by Dr. Montiel upon discharge. Thank you for allowing me to participate in the care of this patient.
[2017-10-26] MEDS ORDERED: HOLD METFORMIN PRODUCTS FOR 48 HOURS MC SCH (14:45)
--- NOTE | 2017-10-26 15:42 | XRAY ---
Exam: CT of the chest with IV contrast from 10/26/2017. CTDI: 23.68 Comparison: None. Indication: Elevated d-dimer. Technique: Post-IV contrast axial images were obtained through the chest during automated injection of 100 cc of Isovue-370 contrast material using the PE protocol. Reconstructed coronal and sagittal images were created and reviewed. Since the patient is on metformin, he was instructed to discontinue its use for 48 hours following the iodinated contrast injection. Findings: The central vessels enhance well. I see no definite filling defects within the main pulmonary artery trunk, right or left main pulmonary arteries, or the proximal branching pulmonary arteries to suggest clot/PE. The thoracic aorta reveals no evidence of aneurysm or dissection. Mild atherosclerotic vascular calcification is seen within the aortic arch. A left-sided cardiac pacemaker is seen with [address] Mild atherosclerotic vascular calcification is seen within branches of the left coronary artery. I see no evidence of pericardial effusion. The left ventricle appears mildly prominent. A calcified lymph node is seen at the lateral aspect of the AP window on the left. A nonspecific lymph node measuring measuring 1.2 cm in short axis is seen just anterior and to the right of the jesus. I also note some small bilateral perihilar lymph nodes. For example, on axial image #61 I note a 1.4 cm in short axis diameter, oval lymph node within the right hilum. I also see a 1.1 cm in short axis diameter lymph node within the left hilum on axial images #53 and #54. These lymph nodes are probably reactive or due to infection. I again see fairly extensive infiltrate within the left lower lobe which is most consolidated posterior laterally. This is consistent with pneumonia. Minimal bilateral posterior pleural fluid is seen, left greater than right. There is also minimal focal infiltrate at the medial aspect of the superior segment of the left lower lobe. For example, see axial image #22 and #23. In addition, I note some focal pneumonic infiltrate at the posterior lateral aspect of the lingula of the left upper lobe. Lastly, there is a small patchy density at the anterior aspect of the left lung apex within the left upper lobe on axial image #92 measuring 1.8 cm in diameter. I am not sure whether this relates to infection (i.e. pneumonia) or some other process. Continued follow-up is recommended. In addition, within the right lung there is groundglass infiltrate within the posterior aspect of the right upper lobe suggestive of pneumonia. There is also some minimal groundglass infiltrate at the posterior medial aspect of the right middle lobe and the anterior medial aspect of the right lower lobe on axial image #43 and sagittal image #31. The upper abdomen reveals no acute process. The visualized adrenal glands appear unremarkable. The skeleton reveals mild degenerative disc disease at C5-C6 and C6-C7 as well as at at least several interspace levels near the thoracolumbar junction. No acute fracture or bone destruction is seen. Impression: 1. I see no findings to suggest acute pulmonary embolism. Nor do I see evidence of aortic dissection. A left-sided cardiac pacemaker is again seen. 2. Fairly extensive multilobar, bilateral pneumonia persists. This is most pronounced within the left lower lobe. See above. Some lymph nodes within the mediastinum and zina are believed to be reactive in nature. 3. I believe there is a minimal amount of posterior left pleural effusion and scant posterior right pleural fluid.
[2017-10-26] MEDS: ENOXAPARIN SODIUM SQ SCH (17:26)
--- NOTE | 2017-10-26 20:48 | XRAY ---
Exam: Bilateral lower extremity duplex Doppler venous ultrasound examination from 10/26/2017. Indication: Positive d-dimer. Comparison: None available. Findings: Multiple grayscale sonogram images, color blood flow images, and Doppler tracings were obtained of the deep veins of both lower extremities. Normal transducer compression, Doppler signal augmentation, and color blood flow was seen within labor service representative sections of both common femoral arteries, both distal greater saphenous veins, both superficial femoral veins, and both popliteal veins. Normal transducer compression, Doppler signal augmentation, and color blood flow was seen within the distal posterior tibial veins bilaterally. No echogenic clot was seen within any deep vein of either lower extremity. Impression: 1. No sonographic or Doppler evidence of deep venous thrombosis is seen within either lower extremity.
[2017-10-26] MEDS: NovoLIN R SQ PRN (22:58)
[2017-10-27] MEDS: DUONEB 0.5-3 MG/3 ml Neb IH SCH ×2 (02:48→06:22)
[2017-10-27 05:56] LABS: Granulocyte Absolute (ANC) 7.84 (1.4-6.9); Hematocrit 40.9 % (42-50); Hemoglobin 13.7 gm/dl (12.5-18.0); Mean Cell Volume 95.6 fl (78-100); Mean Corpuscular Hgb Concent. 33.5 g/dl (32-36); Mean Platelet Volume 11.9 fl (6-9.5); Platelet Count 143 K/mm3 (150-450); Red Blood Count 4.28 M/mm3 (4.1-5.6); White Blood Count 10.8 K/mm3 (4.0-10.5)
[2017-10-27 06:13] LABS: ANION GAP 11.2 MEQ/L (5-15); BLOOD UREA NITROGEN 13 mg/dL (9-20); CHLORIDE 105 mmol/L (98-107); Calcium 8.6 mg/dL (8.4-10.2); Carbon Dioxide 29 mmol/L (22-30); Creatinine 1 0.96 mg/dL (0.66-1.25); Glucose 115 mg/dL (74-106); Potassium 4.2 mmol/L (3.5-5.1); SODIUM 141 mmol/L (137-145)
[2017-10-27] MEDS: Zosyn 3.375GM/100 Ml D5W 3.375 GM/100 ML IVPB IV SCH (06:14)
[2017-10-27] MEDS: PATIENT OWN MEDICATION IH SCH (06:22)
[2017-10-27 07:00] VITALS: BP 138/78; PULSE 68; O2SAT 94
--- NOTE | 2017-10-27 09:01 | PCM.DCORD ---
- Discharge Discharge Date: 10/27/17 Disposition: Home, Self-Care Condition: Good Prescriptions: New Albuterol Sulfate [Albuterol Sulfate Hfa] 2 - 4 puffs IH Q4H PRN #1 [id number] PRN Reason: Shortness Of Breath Prednisone 20 mg [Deltasone 20 mg] 20 mg PO DAILY #5 tablet Levofloxacin [Levofloxacin 500 MG Tablet] 500 mg PO DAILY #5 tablet Continue Aspirin 81 gm Chew [Baby Aspirin 81 mg Chew] 81 mg PO DAILY Amiodarone HCl 200 mg [Cordarone 200 MG] 200 mg PO BID Gabapentin [Neurontin] 300 mg PO TID Clopidogrel Bisulfate 75 mg [PLAVIX 75 MG Tablet] 75 mg DAILY Metformin HCl 500 mg [Glucophage 500 MG] 500 mg BID Pravastatin Sodium 40 mg PO DAILY Nitroglycerin 0.4 mg Tablet [Nitrostat 0.4 MG Tablet] 1 tab PO Q5MIN PRN MR X 3 PRN PRN Reason: Chest Pain Sacubitril/Valsartan [Entresto 49 mg-51 mg Tablet] 1 tab PO BID Isosorbide Mononitrate 30 mg [Imdur 30 MG] 30 mg PO DAILY Metoprolol Tartrate 25 mg [Lopressor 25MG Tab] 25 mg PO BID Tiotropium Br/Olodaterol HCl [Stiolto Respimat Inhal [place]] 1 puff IH BID PRN Discontinued Pravastatin Sodium [Pravachol] 40 mg PO DAILY Follow up with: APRIL LACY MD [NON-STAFF PHY W/O PRIVILEGES] - 1 Week MAY MACKAY [Primary Care Provider] - 1 Week
--- NOTE | 2017-10-27 09:28 | DS ---
DISCHARGE DIAGNOSES: 1) LEFT LOWER LOBE COMMUNITY ACQUIRED PNEUMOMNIA. 2) CHRONIC OBSTRUCTIVE PULMONARY DISEASE EXACERATION. 3) CHEST PAIN. 4) HISTORY OF CORONARY ARTERY DISEASE. 5) DIABETES MELLITUS TYPE 2. DISCHARGE PHYSICAL EXAMINATION: VITALS: Temperature current 97.8F, temperature max 98.2F, heart rate 59 to 72, respiratory rate 18 to 22, blood pressure 121 to 138 over 63 to 78, weight 123 kg. Oxygen saturation 93 to 94% on room air. GENERAL: The patient is pleasant talkative man sitting up in no acute distress. CVS: He has a regular rate and rhythm. No murmurs, gallops or rubs. CHEST: He has a few scattered wheezes throughout. Rhonchi in the left lower lung field. Equal breath sounds. No retractions. No dyspnea. He is not on any oxygen. Clear to auscultation bilaterally. No crackles or wheezes are appreciated. ABDOMEN: Soft, nontender, nondistended with normal bowel sounds. EXTREMITIES: No clubbing, cyanosis or edema. SKIN: Warm, dry and intact. HOSPITAL COURSE: 1) LEFT LOWER LOBE COMMUNITY ACQUIRED PNEUMONIA: He was placed on Levaquin and Zosyn on his arrival. He was continued with these throughout his hospital stay. I am planning on sending him home with Levaquin 500 mg p.o. daily for five more days. His oxygen saturation has been good on room air. He had chest x-ray and CT that confirmed the pneumonia. 2) CHRONIC OBSTRUCTIVE PULMONARY DISEASE EXACERBATION: He has been weaned down to oral prednisone from IV steroids. Will plan to continue five more days of prednisone 20 mg p.o. daily. He is on Stiolto at home per his director of dementia operations, Dr. Montiel and will continue with this. He does not appear to have an Albuterol inhaler at home so I have written a prescription for Albuterol inhaler 2 to 4 puffs every four hours as needed for shortness of breath. He will need to follow up closely with his director of dementia operations. He was seen by Dr. Soria, [employer], while he was here in the hospital. The patient was counseled that he needs to quit smoking. 3) CHEST PAIN: He had some chest pain on admission and ruled out for acute myocardial infarction. He had chest pain again on 10/26/2017. A D-dimer was checked and was elevated. He had chest CT that was negative for pulmonary embolism. Please see the radiologist dictation for the full report. He also had bilateral venous Doppler's that were negative for clot. He reports his chest pain has resolved today. He continues to have some cough that is nonproductive but has been able to ambulate well and would like to go home today. He also had EKG that was unchanged from his previous. 4) HISTORY OF CORONARY ARTERY DISEASE: He was continued on his home medication and this was stable during the hospitalization. 5) DIABETES MELLITUS TYPE 2: He was placed on a low dose sliding scale of NovoLog and resumed his Metformin at the time of discharge. His hemoglobin A1C was checked while he was here and was 5.61. DISCHARGE MEDICATIONS: Please see the discharge medication list for his discharge medications. FOLLOW UP: He is to follow up with myself and also his director of dementia operations, Dr. Montiel. DISPOSITION: The patient was discharged to home in fair condition.
[2017-10-27] MEDS: Pepcid 20 MG VIAL IV SCH (09:47)
[2017-10-27] MEDS: Cordarone 200 MG PO SCH (09:50)
[2017-10-27] MEDS: DELTASONE 20 MG PO SCH (09:51)
[2017-10-27] MEDS: ECOTRIN 81 MG PO SCH (09:51)
[2017-10-27] MEDS: ENOXAPARIN SODIUM SQ SCH (09:52)
[2017-10-27] MEDS: Imdur 30 MG PO SCH (09:53)
[2017-10-27] MEDS: Lopressor 25MG Tab PO SCH (09:54)
[2017-10-27] MEDS: NEURONTIN 300 MG PO SCH (09:54)
[2017-10-27] MEDS: ZOCOR 20MG PO SCH (09:54)
[2017-10-27] MEDS: PLAVIX 75 MG Tablet PO SCH (09:55)
[2017-10-27] MEDS: ENTRESTO 49 MG-51 MG TABLET PO SCH (10:00)
[2017-10-27 14:13] LABS: Lymphocytes 21 % (24-44); Monocyte 6 % (0.0-12.0); Neutrophils 73 % (36.-66.); Platelet Estimate NORMAL (NORMAL); Total Cells Counted 100
== END 2017-10-27 10:10 | disposition home or self-care (01) | DRG 193 ==
LOC: ED 18:42 → MED SURG 23:53 → ICU 10-23 01:45 → MED SURG 10-23 11:18 → OBSVTOIN 10-24 08:54
PROVIDERS: ADMIT Family Medicine; ATTEND Internal Medicine
DX: J18.1 Lobar pneumonia, unspecified organism (principal); A41.9 Sepsis, unspecified organism; J96.01 Acute respiratory failure with hypoxia; J44.1 Chronic obstructive pulmonary disease with (acute) exacerbation; N17.9 Acute kidney failure, unspecified; R07.9 Chest pain, unspecified; I25.10 Atherosclerotic heart disease of native coronary artery without angina pectoris; E11.9 Type 2 diabetes mellitus without complications; Z79.4 Long term (current) use of insulin; E78.00 Pure hypercholesterolemia, unspecified; I10 Essential (primary) hypertension; I25.2 Old myocardial infarction; Z95.810 Presence of automatic (implantable) cardiac defibrillator; Z86.79 Personal history of other diseases of the circulatory system; Z71.6 Tobacco abuse counseling
CPT/HCPCS: 36000; 36415; 36600; 71046; 71260; 80048; 80053; 81000; 82375; 82803; 83036; 83605; 83880; 84484; 85025; 85379; 87040; 87070; 87430; 87631; 93005; 93041; 93268; 93970; 94150; 94640; 94660; 94668; 94760; 96360; 96361; 96365; 96367; 96368; 96374; 99285; J0694; J0696; J1170; J1200; J1650; J1956; J2270; J2543; J3475; A9270-GY; G0378

== ENCOUNTER 2018-06-30 14:01 | Emergency (ER) | payer OTHER ==
[2018-06-30] MEDS ORDERED: DUONEB 0.5-3 MG/3 ml Neb IH ONE ×2 (14:54→15:23)
[2018-06-30] MEDS ORDERED: DELTASONE 20 MG PO ONE (14:54)
[2018-06-30] MEDS ORDERED: DELTASONE 20 MG ONE (15:11)
[2018-06-30 16:02] VITALS: O2SAT 98
[2018-06-30 16:08] LABS: BASOPHIL % 0.3 % (0.0-0.4); Basophil (Absolute #) 0.02 (0-0.4); Eosinophil % 2.6 % (0.00-5.0); Eosinophil (Absolute #) 0.17 (0-0.5); Granulocyte Absolute (ANC) 3.65 (1.4-6.9); Granulocytes % 55.4 % (36.0-66.0); Hematocrit 43.9 % (42-50); Hemoglobin 14.4 gm/dl (12.5-18.0); Lymphocyte (Absolute #) 1.96 (1.0-4.6); Lymphocytes % 29.8 % (24.0-44.0); Mean Cell Volume 96.9 fl (78-100); Mean Corpuscular Hemoglobin 31.8 pg (26-32); Mean Corpuscular Hgb Concent. 32.8 g/dl (32-36); Mean Platelet Volume 11.8 fl (6-9.5); Monocyte (Absolute #) 0.78 (0.0-1.3); Monocytes % 11.9 % (0.0-12.0); Platelet Count 143 K/mm3 (150-450); Red Blood Count 4.53 M/mm3 (4.1-5.6); Red Cell Distribution Width 13.9 % (11.5-14.0); White Blood Count 6.6 K/mm3 (4.0-10.5)
[2018-06-30 16:19] LABS: ALBUMIN 4.3 g/dL (3.5-5.0); ALKALINE PHOSPHATASE 56 U/L (38-126); ANION GAP 12.8 MEQ/L (5-15); BLOOD UREA NITROGEN 10 mg/dL (9-20); CHLORIDE 103 mmol/L (98-107); Calcium 9.2 mg/dL (8.4-10.2); Carbon Dioxide 28 mmol/L (22-30); Creatinine 1 0.94 mg/dL (0.66-1.25); Glucose 110 mg/dL (74-106); Potassium 4.1 mmol/L (3.5-5.1); SGOT/AST 77 U/L (17-59); SGPT/ALT 69 U/L (0-50); SODIUM 140 mmol/L (137-145); Total Protein 7.3 g/dL (6.3-8.2)
[2018-06-30 16:51] LABS: INFLUENZA A NEGATIVE (NEGATIVE); INFLUENZA B NEGATIVE (NEGATIVE); RESPIRATORY SYNCTIAL VIRUS NEGATIVE (Negative)
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
[2018-06-30 17:04] VITALS: BP 160/90; PULSE 85
--- NOTE | 2018-06-30 19:24 | XRAY ---
Indication: Cough. Short of breath. Comparison: October 25, 2017. PA/lateral chest is now clear. Heart and mediastinal structures within normal limits again with left-sided AICD. Bony thorax intact with minimal degenerative changes. Impression: Nonacute chest with chronic features.
--- NOTE | 2018-06-30 19:26 | XRAY ---
Indication: 4/5 digit contracture. No known injury. Comparison: None 3 views of the left hand obtained. No bony, articular, or soft tissue abnormalities.
== END 2018-06-30 17:07 | disposition home or self-care (01) ==
LOC: ED 14:01
DX: M72.0 Palmar fascial fibromatosis [Dupuytren] (principal); J40 Bronchitis, not specified as acute or chronic; E11.9 Type 2 diabetes mellitus without complications; Z79.4 Long term (current) use of insulin; I25.10 Atherosclerotic heart disease of native coronary artery without angina pectoris; E78.00 Pure hypercholesterolemia, unspecified; I10 Essential (primary) hypertension; I25.2 Old myocardial infarction; J44.9 Chronic obstructive pulmonary disease, unspecified; Z95.0 Presence of cardiac pacemaker; Z79.899 Other long term (current) drug therapy
CPT/HCPCS: 36415; 71046; 73130; 80053; 85025; 87631; 94150; 94640; 99284; A9270-GY

== ENCOUNTER → 2023-05-10 | Day surgery (SDC) | payer BC, OTHER ==
[2012-05-21 12:35] VITALS: BP 129/98
[~2023-05-10] MED LIST: DIPRIVAN 200 MG/20 ML IV ONE; Decadron 4 MG INJ IV ONE; Lactated Ringers 1,000 ML IV ONE; Sodium Chloride 0.9(Preservative Free) 10 ML IJ ONE; XYLOCAINE-MPF 1% 5ML SDV IJ ONE
--- NOTE | 2023-05-10 16:35 | XRAY ---
Indication: Left L4-S1 transforaminal SHAMA. Intraoperative fluoroscopy provided for 23 seconds. 5 digital spot images submitted for interpretation demonstrates posterior needle tips projecting over the expected left L4 and L5 nerve roots. Small amount of contrast injected for needle tip placement. Correlate with intraoperative findings/report.
--- NOTE | 2023-05-10 16:37 | XRAY ---
Indication: Left piriformis injection. Intraoperative fluoroscopy provided for 15 seconds. Single digital spot image submitted for interpretation demonstrates posterior needle tip projecting over the expected left piriformis. Small amount of contrast injected for needle tip placement. Correlate with intraoperative findings/report.
--- NOTE | 2023-05-10 16:48 | XRAY ---
23 seconds of fluoroscopy was used in surgery for a left L4-S1 TESI.
--- NOTE | 2023-05-10 16:48 | XRAY ---
15 seconds of fluoroscopy was used in surgery for a left piriformis injection.
== END ==
LOC: SDC-PAIN 12:04
PROVIDERS: ATTEND Psychiatry & Neurology Pain Medicine
DX: M54.16 Radiculopathy, lumbar region (principal); M79.18 Myalgia, other site; Z79.899 Other long term (current) drug therapy
CPT/HCPCS: 20552; 64483; 64484; 72100; 72170; 77002; 77003; J1100; J2704; Q9966